=== PATIENT | female | born 1980 | race Caucasian/White ===

== ENCOUNTER 2019-03-27 10:55 | Inpatient (IN) | payer MEDICAID ==
[~2019-03-27] VITALS: Ht 160 cm; Wt 59.7 kg
[~2019-03-27 10:55] MED LIST: EPHEDrine 25 MG/5 ML SYG ONE; PHENYLephrine (100 MCG/ML) 10ML SYG ONE; PREN1TAB49 PO
--- NOTE | 2019-03-27 11:07 | TRIAGE ---
OB Triage Datetime Report Generated by CPN: 03/27/2019 11:07 Datetime: 03/27/2019 10:49 Time of Arrival: 03/27/2019 10:49 EGA: 36.2 Arrived By: Ambulatory Arrived From: Home Chief Complaint: R/O LABOR REPRAT WITH BLOODY SHOW Movement: Present Contractions: Regular Time Contractions Began: 03/26/2019 22:00 Contractions: 5 MIN Additional Patient Complaints: NONE Time Provider Notified: 03/27/2019 11:04 Provider Notified: CAT Initial Plan: NONE
[2019-03-27] MEDS ORDERED: LACTATED RINGER'S 1,000 ML IV SCH ×2 (11:08→11:22)
[2019-03-27 11:09] VITALS: Ht 160 cm; Wt 59.7 kg
--- NOTE | 2019-03-27 11:27 | HP ---
Date/Time of Note Date/Time of Note DATE: 03/27/19 TIME: 11:25 OB - History Hx of Present Free Text/Dictation @36+wks GA previous c/section in Active labor : 3 Para: 1 Care: Good Care Ultrasounds: Normal mid trimester US Obstetrical Complications: None Medical Complications: None Past Family/Social History * Past Medical, Surgical, Family and Obstetric Histories reviewed from chart. OB Admission Exam Physical Exam Abdomen: WNL Extremities: Normal Cervical Dilatation: 5cm Effacement: 75% Station: -1 Membranes: Intact Heart Rate: 140's Accelerations: Accelerations Present Decelerations: No Decelerations Varibility: Moderate Contractions on Admission: 6-10 Minutes Apart OB Assessment/Plan Reason for admission: observation Other Assessment: PMH Denies PSH previous c/section Plan: Expectant Management RORY SHELTON M.D. March 27, 2019 11:27
[2019-03-27] MEDS ORDERED: CARBOPROST 250 MCG INJ IM PRN ×3 (11:30→16:30)
[2019-03-27] MEDS ORDERED: CEFAZOLIN 2 GM/50 ML (PMX) 50 ML IVPB SCH ×2 (11:30)
[2019-03-27] MEDS ORDERED: OXYTOCIN 30 UNITS/LR 500 ML IV SCH ×3 (11:30→16:26)
[2019-03-27] MEDS ORDERED: METHYLERGONOVINE 0.2 MG INJ IM PRN ×3 (11:30→16:30)
[2019-03-27] MEDS ORDERED: OXYTOCIN 30 UNITS/LR 500 ML IV PRN ×3 (11:30→16:30)
[2019-03-27] MEDS ORDERED: MISOPROSTOL 200 MCG TAB PR PRN ×3 (11:30→16:30)
[2019-03-27] MEDS ORDERED: morphine SULFATE/PF (10 MG/10 ML) INJ ONE (12:02)
[2019-03-27] MEDS ORDERED: ONDANSETRON 4 MG INJ ONE ×2 (12:13→15:39)
[2019-03-27] MEDS ORDERED: METOCLOPRAMIDE 10 MG INJ ONE (12:14)
[2019-03-27] MEDS ORDERED: OXYTOCIN 10 UNIT INJ ONE (12:20)
[2019-03-27] MEDS ORDERED: MIDAZOLAM 1 MG/ML 2 ML INJ ONE (12:21)
--- NOTE | 2019-03-27 12:31 | PREAC ---
Date/Time of Note Date/Time of Note DATE: 03/27/19 TIME: 12:26 Anesthesia Eval and Record Evaluation Time Pre-Procedure Interview DATE: 03/27/19 TIME: 11:46 Age 38 Sex female NPO: 8 hrs Preoperative diagnosis iup @ 36.5 wks., prev. c/s, , labor Planned procedure repeat c/s Past Medical History Past Medical History: Includes : : (3), Para: (1), Gestational age: (36.5 wks.) Surgery & Anesthesia Issues No known issue Meds Anticoagulation: No Beta Fatou within 24 hr: No (36.5 plus weeks) Reason Beta Fatou not given: Pt. not on B-Fatou Reported Medications Vits W-Ca,Fe,Fa(<1MG) () 1 Tab Tablet, 1 PO DAILY 09/29/11 Current Medications Lactated Ringer's 1,000 ml @ 125 mls/hr Q8H IV Last administered on 03/27/19at 11:36; Admin Dose 125 MLS/HR; Start 03/27/19 at 11:22 Cefazolin Sodium/ Dextrose 50 ml @ 100 mls/hr ONCE IVPB ; Start 03/27/19 at 11:30 Oxytocin/Lactated Ringer's 500 ml @ 125 mls/hr POST IV ; Start 03/27/19 at 11:30 Oxytocin/Lactated Ringer's 500 ml @ 0 mls/hr ONCE PRN IV .VAGINAL BLEEDING; Start 03/27/19 at 11:30 Methylergonovine Maleate (Methergine) 0.2 mg ONCE PRN IM .VAGINAL BLEEDING; Start 03/27/19 at 11:30 Carboprost Tromethamine (Hemabate) 250 mcg ONCE PRN IM .VAGINAL BLEEDING; Start 03/27/19 at 11:30 Misoprostol (Cytotec) 1,000 mcg ONCE PRN [place] .VAGINAL BLEEDING; Start 03/27/19 at 11:30 Meds reviewed: Yes Allergies Coded Allergies: No Known Drug Allergies (Verified Allergy, Unknown, 03/27/19) Allergies Reviewed: Yes Labs/Studies Labs Reviewed: Reviewed by anesthesiologist Result Diagram: 03/27/19 1120 Laboratory Tests 03/27/19 11:20 test: Positive Studies: ECG (n/a), CXR (n/a) Pre-procedure Exam Airway: Adequate mouth opening, Adequate thyromental dist Mallampati: Mallampati II Teeth: Normal Lung: Normal Heart: Normal ASA Physical Status ASA physical status: 2 Emergency: E Planned Anesthetic General/MAC: MAC (after baby born), TIVA (deep mac) Neuraxial: Spinal Planned Pain Management Sub-arachniod narcotics, Parenteral pain med, Local by surgeon Pre-operative Attestations Prior to commencing anesthesia and surgery, the patient was re-evaluated, there was verification of: *The patient's identity *The results of appropriate recent lab work and preoperative vital signs *The above evaluation not changing prior to induction *Anesthetic plan, risk benefits, alternative and complications discussed with patient/family; questions answered; patient/family understands, accepts and wishes to proceed. Law Enforcement Director used GAYE HERNANDEZ MD March 27, 2019 12:31
--- NOTE | 2019-03-27 12:51 | OPPN ---
Date/Time of Note Date/Time of Note DATE: 03/27/19 TIME: 12:48 Operative Report Planned Procedure Free Text/Dictation 36+wks Previous c/section in labor Procedure date March 27, 2019 Procedure(s) Repeat c/section Performed by see signature line Educational Administrator: RORY SHELTON M.D. 2nd Educational Administrator none Pre-procedure diagnosis 36+wks Previous c/section in labor [id number] Anesthesia Type: Noxrp3s spinal Post-Procedure Post-procedure diagnosis same Findings Live Baby [], Apgars [] and [], weight [], position [], [] presentation []cord. Estimated Blood Loss: 500 - 600 mls Specimen(s) none Grafts/Implant(s) none Complication(s) none RORY SHELTON M.D. March 27, 2019 12:51
--- NOTE | 2019-03-27 13:18 | OPPN ---
Date/Time of Note Date/Time of Note DATE: 03/27/19 TIME: 13:30 Anesthesia Follow up Anesthesia Follow up Respiratory function: WNL Cardiovascular function: WNL GAYE HERNANDEZ MD March 27, 2019 13:18
[2019-03-27] MEDS ORDERED: LACTATED RINGER'S 1,000 ML IV ONE (13:19)
[2019-03-27] MEDS ORDERED: DIPHENHYDRAMINE 50 MG INJ IV PRN (13:30)
[2019-03-27] MEDS ORDERED: MIDAZOLAM 1 MG/ML 2 ML INJ IV PRN (13:30)
[2019-03-27] MEDS ORDERED: MEPERIDINE 25 MG INJ IV PRN (13:30)
--- NOTE | 2019-03-27 15:12 | OPR ---
DATE OF OPERATION: 03/27/2019 PREOPERATIVE DIAGNOSIS: A 36+ weeks' gestational age. Previous in active labor. POSTOPERATIVE DIAGNOSIS: A 36+ weeks' gestational age. Previous in active labor. OPERATION PERFORMED: Repeat section. ATTENDING PHYSICIAN: Joseph Valencia MD COATING MANAGER: None, as could not make it to the case. ANESTHESIOLOGIST: . TYPE OF ANESTHESIA: Spinal. COMPLICATIONS: None. ESTIMATED BLOOD LOSS: 600 mL. TECHNIQUE: The patient was taken to the operating room where spinal anesthesia was found to be adequate. The patient was placed in supine position, and after prep and drape, a Pfannenstiel incision was made 2 cm above the symphysis pubis. It was extended to the underlying fascia. Fascia was nicked in the midline. Fascial incision was extended bilaterally. Fascia was from underlying muscles. Muscles were in the midline. Peritoneum was entered sharply. Peritoneal incision was extended. Bladder blade was placed inside the abdominal cavity. Lower uterus and bladder flap was made. Lower uterine segment incision was made. Baby was delivered vertex, handed to the NICU team. Cord blood sent. Placenta was removed manually. Uterus was exteriorized. Intrauterine cavity was cleaned using 2 sponges. Uterine cavity was cleaned using 2 sponges. Lower uterine segment incision was closed in 2 layers using 0 looped PDS sutures. Gutters were cleaned. Uterus was inserted inside the abdominal cavity. Lower uterine peritoneum and muscles were reapproximated using 2-0 chromic sutures. Subcutaneous tissue was closed using plain sutures. The skin was closed using Monocryl sutures. Dermabond was placed on top of the incision. The patient tolerated the procedure well and was transferred to recovery room in stable condition. There was no complication regarding this surgery. Dictated By: JOSEPH NEWBY/NTS Conf#: [id number] DID#: [id number] CC: LUCRECIA WERNER MD;*EndCC* MTDD
[2019-03-27] MEDS ORDERED: ONDANSETRON 4 MG INJ IV STA (15:38)
[2019-03-27] MEDS ORDERED: KETOROLAC 30 MG INJ IV STA (16:06)
[2019-03-27] MEDS ORDERED: NACL 0.9% 3 ML SYG IV SCH (16:30)
[2019-03-27] MEDS ORDERED: KETOROLAC 30 MG INJ IV PRN (16:30)
[2019-03-27] MEDS ORDERED: OXYCODONE/ACETAMINOPHEN (5/325) TAB PO PRN (16:30)
[2019-03-27] MEDS ORDERED: KETOROLAC 15 MG INJ IV PRN (16:30)
[2019-03-27] MEDS ORDERED: NALOXONE (0.4 MG/ML) INJ IV PRN (16:30)
[2019-03-27] MEDS ORDERED: KETOROLAC 60 MG INJ IM PRN (16:30)
[2019-03-27 16:35] VITALS: BP 126/81; PULSE 67; RESP 18
[2019-03-27 17:10] VITALS: BP 119/79; PULSE 81; RESP 18
[2019-03-27] MEDS ORDERED: IBUPROFEN 600 MG TAB PO SCH (18:00)
[2019-03-27 19:25] VITALS: BP 130/78; PULSE 75; RESP 18
[2019-03-27] MEDS: SENNA/DOCUSATE NA (8.6MG/50MG) TAB PO SCH (21:00)
[2019-03-27] MEDS: CEFAZOLIN 2 GM/50 ML (PMX) 50 ML IVPB SCH (21:29)
[2019-03-28] MEDS: KETOROLAC 30 MG INJ IV PRN ×3 (00:05→12:05)
[2019-03-28 04:08] VITALS: BP 104/64; PULSE 77; RESP 18
[2019-03-28] MEDS: CEFAZOLIN 2 GM/50 ML (PMX) 50 ML IVPB SCH ×2 (04:51→13:33)
--- NOTE | 2019-03-28 05:25 | PAC ---
Date/Time of Note Date/Time of Note DATE: 03/28/19 TIME: 05:24 Post-Anesthesia Notes Post-Anesthesia Note Last documented vital signs Vital Signs Date Temp Pulse Resp B/P (MAP) Pulse Ox O2 O2 Flow FiO2 Time Delivery Rate 03/28/19 98.4 77 18 104/64 Room Air 04:08 (77) 03/27/19 98 19:25 Activity: WNL Respiratory function: WNL Cardiovascular function: WNL Mental status: Baseline Pain reasonably controlled: Yes Hydration appropriate: Yes Nausea/Vomiting absent: Yes Comments S: pt. is pod #1. min. bt pain. min. need for bt pain meds ie. nsaids/opiates. min. n/v. ambulating. O: vss, afeb. A: min. bt pain sec. to it mso4. P: no complications. GAYE HERNANDEZ MD March 28, 2019 05:25
[2019-03-28] MEDS ORDERED: LACTATED RINGER'S 1,000 ML IV SCH (06:00)
[2019-03-28 08:00] VITALS: BP 111/72; PULSE 83; RESP 18
[2019-03-28] MEDS: SENNA/DOCUSATE NA (8.6MG/50MG) TAB PO SCH ×2 (09:17→21:18)
[2019-03-28 12:00] VITALS: BP 105/63; PULSE 85; RESP 18
[2019-03-28 16:00] VITALS: BP 117/73; RESP 16
[2019-03-28 16:05] VITALS: BP 117/73; PULSE 87; RESP 16
[2019-03-28] MEDS: IBUPROFEN 600 MG TAB PO SCH ×2 (17:32→23:58)
[2019-03-28 20:25] VITALS: BP 113/69; PULSE 86; RESP 18
[2019-03-29 04:00] VITALS: BP 101/67; PULSE 69; RESP 18
[2019-03-29] MEDS: IBUPROFEN 600 MG TAB PO SCH ×4 (06:23→23:30)
[2019-03-29 08:15] VITALS: BP 105/59; PULSE 77; RESP 18
--- NOTE | 2019-03-29 09:22 | QN ---
Documentation Comment doing well vss abd soft incision clean d/c home next am LUCRECIA WERNER MD March 29, 2019 09:22
--- NOTE | 2019-03-29 09:23 | DS ---
Date/Time of Note Date/Time of Note DATE: 03/29/19 TIME: 09:23 Discharge Summary Admission/Discharge Info Admit Date/Time March 27, 2019 at 11:04 Discharge Date/Time Discharge Diagnosis term Patient Condition: Stable Hospital Course unremarkable Home Meds Reported Medications Vits W-Ca,Fe,Fa(<1MG) () 1 Tab Tablet, 1 PO DAILY 09/29/11 Primary Care Provider Care Physician No Primary Pending Labs Laboratory Tests Test 03/29/19 06:59 Lab Scanned Report [facility] [id number] LUCRECIA WERNER MD March 29, 2019 09:23
[2019-03-29] MEDS: SENNA/DOCUSATE NA (8.6MG/50MG) TAB PO SCH ×2 (09:38→21:13)
[2019-03-29 16:00] VITALS: BP 111/66; PULSE 76; RESP 19
[2019-03-29 19:50] VITALS: BP 108/63; PULSE 77; RESP 18
[2019-03-30 04:10] VITALS: BP 117/72; PULSE 67; RESP 18
[2019-03-30] MEDS: IBUPROFEN 600 MG TAB PO SCH ×2 (05:42→11:12)
[2019-03-30 08:18] VITALS: BP 113/76; PULSE 75; RESP 18
[2019-03-30] MEDS: SENNA/DOCUSATE NA (8.6MG/50MG) TAB PO SCH (08:42)
[2019-03-30] MEDS ORDERED: DIPHTH/TET/ACEL PERTUSS (ADULT) 0.5 ML VIAL IM* ONE (09:00)
--- NOTE | 2019-03-31 15:18 | DELSUM ---
Delivery Summary A-C Datetime Report Generated by CPN: 03/31/2019 15:18 DELIVERY PERSONNEL Fire Protection Engineering Technician: Rowena Rudd MATERNAL INFORMATION Delivery Anesthesia: Spinal Medications in Delivery: see anesthesia Delivery QBL (ml): 569 Placenta Cultured: No Maternal Complications: None Other Maternal Complications: IN LABOR LABOR SUMMARY EDC: 04/22/2019 00:00 No. Babies in Womb: 1 Attempted: No Labor Anesthesia: None LABOR INFORMATION Reason for Induction: Not Applicable Oxytocin: N/A Group B Beta Strep: Negative Antibiotics # of Doses: 1 Antibiotics Time of Last Dose: 03/27/2019 12:15 Steroids Given: None Reason Steroids Not Administered: Not Applicable MEMBRANES Membranes Rupture Method: Artificial Rupture of Membranes: 03/27/2019 12:21 Length of Rupture (hr): 0.00 Amniotic Fluid Color: Clear Amniotic Fluid Amount: Small Amniotic Fluid Odor: Normal STAGES OF LABOR Stage 3 hr: 0 Stage 3 min: 1 CSECTION DELIVERY Primary Indication: Repeat Elective CSection Urgency: Non Elective CSection Incidence: Repeat Labor: Labor Elective: Nonelective CSection Incision: Lower Uterine Transverse BABY A INFORMATION Delivery Date/Time: 03/27/2019 12:21 Method of Delivery: Born in Route : No : N/A Forceps: N/A Vacuum Extraction: N/A Shoulder Dystocia : N/A SHOULDER DYSTOCIA BABY A Delivery Date/Time: 03/27/2019 12:21 PRESENTATION/POSITION BABY A Presentation: Cephalic Cephalic Presentation: Vertex Vertex Position: N/A Breech Presentation: N/A PLACENTA INFORMATION BABY A Placenta Delivery Time : 03/27/2019 12:22 Placenta Method of Delivery: Manual Removal Placenta Status: Delivered SCORES BABY A Heart Rate 1 min: >100 bpm Resp Effort 1 min: Good Cry Reflex Irritability 1 min: Cough/Sneeze/Pulls Away Muscle Tone 1 min: Active Motion Color 1 min: Blue/Pale Resuscitation Effort 1 min: Tactile Stimulation SCORE 1 MIN: 8 Heart Rate 5 min: >100 bpm Resp Effort 5 min: Good Cry Reflex Irritability 5 min: Cough/Sneeze/Pulls Away Muscle Tone 5 min: Active Motion Color 5 min: Body [place], Extremit Blue Resuscitation Effort 5 min: Tactile Stimulation SCORE 5 MIN: 9 INFORMATION BABY A Gestational Age at Delivery: 36.2 Gestational Status: Late - 34- 36.6 Weeks Outcome : Liveborn Infant Condition : Stable Sex: Female IDENTIFICATION/MEDS BABY A ID Band Number: [id number] ID Band Location: Right Leg; Left Arm Sensor Applied: Yes Sensor Number: [id number] Sensor Location : Cord Clamp Vitamin K Given : Not Given Erythromycin Given: Not Given WEIGHT/LENGTH BABY A Infant Birthweight (gm): 2690 Infant Weight (lb): 5 Infant Weight (oz): 15 Length (in): 19.00 Length (cm): 48.26 CORD INFORMATION BABY A No. Cord Vessels: 3 Nuchal Cord : N/A Infant Suction: Mouth; Nose ASSESSMENT BABY A Complications: None Physical Findings at Delivery: Within Normal Limits Respirations: Appears Normal Clinical Information Systems Director/ALS Called : Yes Infant Care By: RT Transferred To: Remains with Mother
== END 2019-03-30 14:05 | disposition home or self-care (01) | DRG 788 ==
LOC: OBT 10:55 → L-D 10:56 → OBT 11:04 → L-D 11:56 → PP1 16:26
PROVIDERS: ADMIT Obstetrics & Gynecology; ATTEND Obstetrics & Gynecology
PROC: 10D00Z1 Extraction of Products of Conception, Low, Open Approach (ICD-10-PCS; principal; 2019-03-27 12:15)
DX: O34.219 Maternal care for unspecified type scar from previous cesarean delivery (principal); G89.18 Other acute postprocedural pain; Z3A.36 36 weeks gestation of pregnancy; Z37.0 Single live birth; Z23 Encounter for immunization
CPT/HCPCS: 80307; 85025; 85610; 85730; 86592; 86703; 86762; 86850; 86870; 86885; 86900; 86901; 87340; 90715; 99464; G0463; J0690; J1885; J2250; J2274; J2370; J2405; J2590; J2765; J2790; J7120